=== PATIENT | male | born 1985 | race Hispanic/Latino ===

== ENCOUNTER 2017-07-15 07:27 | Day surgery (SDC) | payer BC ==
[2017-07-15] MEDS ORDERED: Lidocaine 1% Inj (20ml) ONE (09:01)
[2017-07-15] MEDS ORDERED: Bupivacaine HCl 0.5% PF (10 ml) Inj ONE (10:42)
[2017-07-15] MEDS ORDERED: Bacitracin Ointment 30 GM TUBE ONE (10:43)
--- NOTE | 2017-07-15 11:38 | PCM.SURG1 ---
Surgeon's Initial Post Op Note - Surgeon's Notes Surgeon: Dr. Person Animal Warden: PGY1, Alek [id number] Type of Anesthesia: Local Pre-Operative Diagnosis: sebaceous cyst on scalp x 2 Operative Findings: see op note Post-Operative Diagnosis: as above Operation Performed: excision of sebaceous cyst on scalp x 2 Specimen/Specimens Removed: cyst from scalp x 2 Estimated Blood Loss: EBL {In ML}: 5 Drains Used: No Drains Post-Op Condition: Good Date of Surgery/Procedure: 07/15/17 Time of Surgery/Procedure: 11:38
[2017-07-15 11:53] VITALS: BP 122/68; PULSE 68; RESP 16; TEMP 97; O2SAT 100
--- NOTE | 2017-07-15 23:07 | OP ---
PROCEDURE DATE: 07/15/2017 PREOPERATIVE DIAGNOSIS: Two sebaceous cysts of scalp. POSTOPERATIVE DIAGNOSIS: Two sebaceous cysts of scalp. PROCEDURE CARRIED OUT: Removal of two 2 cm sebaceous cysts of scalp. SURGEON: Sukhdev Person Jr., MD SUPPORT TEACHER: Dr. Longoria. ANESTHESIOLOGIST: Myself. ANESTHESIA: 1% Xylocaine with epinephrine. INDICATIONS: The patient is a 32-year-old man with two painful sebaceous cysts of the scalp, increasing in size. OPERATIVE FINDINGS: These were cysts, one was removed and intact. The second was removed entirely, but did ruptured during its removal. Wounds were closed with 5-0 nylon sutures. Followup instruction was given to the patient. Sukhdev Person Jr., MD
== END 2017-07-15 11:53 | disposition home or self-care (01) ==
LOC: C.SDS 07:27
PROVIDERS: ATTEND Surgery Vascular Surgery
DX: L72.3 Sebaceous cyst (principal)